=== PATIENT | male | born 1965 | race Caucasian/White ===

== ENCOUNTER → 2023-12-06 18:00 | Outpatient (REF) | payer OTHER, SELFPAY ==
--- NOTE | 2023-11-30 14:47 | PN.DIAED02 ---
Referral
DSME Class Series Code: [id number]
Referred For: Diabetes Self-Management Training, Medical Nutrition Therapy, Self-Blood Glucose Monitoring, Long-Term Complication Instruction, Accute Complication Instruction, Care Coordination, Disease Management
PHI Release Authorization Form Signed: Yes
Patient Problems:
Current Active Problems
Problem Status Onset
Type 2 diabetes mellitus without complications ~03/12/23
Demographic
(1) Type 2 diabetes mellitus without complications
Status: Acute Onset Date: ~03/12/23
Qualifiers:
Diabetes mellitus senior care insulin use: without long distance operator use Qualified Code(s): E11.9 - Type 2 diabetes mellitus without complications
Code(s): E11.9 - Type 2 diabetes mellitus without complications
Patient's primary language-: Peruvian
Education: High school/GED
Occupation: Manual labor
Hours Worked/Week: 20-40
Shift: Day
- Social
Primary Support Person: Self
Primary Care Takers: Self
Living Arrangements: Self & spouse
- Learning Methods
Preferred Method: Hands-on demonstration, Group discussion
Barriers to Learning: None
Glycemic Control
- Blood Glucose Monitoring Assessment
Blood glucose monitoring at home: Yes
Monitor Brands: [employer]
Frequency: rarely
Time: fasting
- Hemoglobin A1c
Date: 06/22/23
A1C Percentage (%): 12.5
Medical History of Diabetes
Family Diabetes History: Father
Previous Diabetes Education: No
Previous visit with Dietitian: No
Complications/Comorbidity/Specialist: Diabetic Neuropathy, Hypertension, Hyperlipidemia
Measures
- Anthropometrics
Height: 5 ft 11 in
Actual Weight: 107.955 kg
- Blood Pressure / Pulse
Blood pressure: 117/70
Pulse: 67
- Diabetes Management
Medical Management for Diabetes: Complete physical exam (06/22/2023), Dental exam (04/23/2023), Dilated eye exam (05/24/2023), Foot exam (04/23/2023)
Self-Care
- Tobacco Usage
Do you now, or have you ever smoked?: Quit more than 1 year ago
Smoking Cessation Referral and/or Information provided: No
- Alcohol & Drugs Usage
Drinks Alcohol: Yes
Amount/day: Rarely
Uses Recreational Drugs: Yes
- Meals & Dining
Meals & Dining: Patient skips meals: Yes, Food Intolerance / Allergy: No, Cultural / Catholic Dietary Needs: No
Primary Food Bead Filler: Spouse
Primary Tank Storage Supervisor: Spouse
Dining Out Frequency: 1-3x per week
- Physical Activity
Physical Limitation: No
Patient participates in physical Activity: No
- Self Foot-Care
Foot Problems: None
Performs Self Foot-Exam: No
Frequency: Rarely
- Patient-Self Assessment
Diabetes Knowledge: Poor
Feelings About Diabetes: Sadness / Depression
General Health: Fair
Importance of Health: Extremely
Stress Level: Medium
Diabetes Interferes With:: Nothing
Barriers to Diabetes Management: Nothing
Depression Survey Score: 0
Care Plan
- Education Needs
Patient Education Needs: Diabetes disease process, Chronic complications, Acute complications, Monitoring, Physical activity, Psychosocial Adjustment, Nutritional management, Goal setting & problem solving
Recommended Diabetes Training Program based on assessment: Outpatient Diabetes Education Program
- Plan of Care
Plan of Care:
Met with Deangelo today for registration and initiation of Diabetes Self-management. Pt was recommended by his PCP due to uncontrolled Diabetes, A1C of 12.5%. Patient reports that he was started on Metformin 1000mg BID. He was given a script for Wegovy
but it was cost prohibitive. Discussed adding Farxiga for optimal glucose control and pt was agreeable of the co-pay is <150. Will send script to his [facility] pharmacy.
He has a working meter at home but states he is very lazy and has not been monitoring his sugars.
Pt states that he does not exercise, he was counseled with emphasis on need to adhere to an intensive lifestyle modification that includes healthy eating, exercising and monitoring blood glucose twice a day. We spent a good amount of time discussing
importance of Physical activity. Goals for physical activity were established; Pt will start walking for 30 mins 3times/week in the evening after dinner.
--- NOTE | 2023-11-30 15:48 | PN.DIAED04 ---
Education Record
- Education Record
Class Attended: Other (Pre-Registration for DSME Classes)
DSME Class Series Code: [id number]
Instructor: Nurse Practitioner (SHERWIN Aleman)
Class Length (mins): 30
Pre-Program Knowledge: No knowledge
Pre-Test Score (%): 34
Goals
- Goal 1
Being Active: Exercise 30 minutes-5 times per week
Goals To Be Evaluated: Exercise 30 mins-5x/week
- Goal 2
Healthy Eating: Follow meal plan
Goals To Be Evaluated: Follow meal plan
- Goal 3
Monitoring: Follow monitoring schedule
Goals To Be Evaluated: Follow monitoring times
--- NOTE | 2023-12-13 14:30 | PN.DIAED06 ---
Meal Plans - Regular
- Meal Plan
Diabetic Meal Plan Name: 2000 calories
Breakfast - Total Carbohydrate (grams): 45
Breakfast - Starch Carbohydrate: 0
Breakfast - Fruit Carbohydrate: 0
Breakfast - Milk Carbohydrate: 0
Breakfast - Nonstarchy Vegetables: Yes
Breakfast - Meat/Protein: 1
Breakfast - Fat: 2
Morning Snack - Total Carbohydrate (grams): 30
Morning Snack - Starch Carbohydrate: 0
Morning Snack - Fruit Carbohydrate: 0
Morning Snack - Milk Carbohydrate: 0
Morning Snack - Nonstarchy Vegetables: Yes
Morning Snack - Meat/Protein: 0.5
Morning Snack - Fat: 0
Lunch - Total Carbohydrate (grams): 45
Lunch - Starch Carbohydrate: 0
Lunch - Fruit Carbohydrate: 0
Lunch - Milk Carbohydrate: 0
Lunch - Nonstarchy Vegetables: Yes
Lunch - Meat/Protein: 3
Lunch - Fat: 1
Afternoon Snack - Total Carbohydrate (grams): 30
Afternoon Snack - Starch Carbohydrate: 0
Afternoon Snack - Fruit Carbohydrate: 0
Afternoon Snack - Milk Carbohydrate: 0
Afternoon Snack - Nonstarchy Vegetables: Yes
Afternoon Snack - Meat/Protein: 0.5
Afternoon Snack - Fat: 0
Dinner - Total Carbohydrate (grams): 45
Dinner - Starch Carbohydrate: 0
Dinner - Fruit Carbohydrate: 0
Dinner - Milk Carbohydrate: 0
Dinner - Nonstarchy Vegetables: Yes
Dinner - Meat/Protein: 4
Dinner - Fat: 2
Evening Snack - Total Carbohydrate (grams): 15
Evening Snack - Starch Carbohydrate: 0
Evening Snack - Fruit Carbohydrate: 0
Evening Snack - Milk Carbohydrate: 0
Evening Snack - Nonstarchy Vegetables: Yes
Evening Snack - Meat/Protein: 0
Evening Snack - Fat: 0
--- NOTE | 2023-12-20 11:42 | PN.DIAED04 ---
Education Record
- Education Record
Class Attended: Class 1
DSME Class Series Code: [id number]
Instructor: Nurse Practitioner (SHERWIN Aleman)
Class Curriculum:
Outpatient Diabetes Education Program:
Class 1 (120 minutes)
Describe the diabetes disease process and treatment options
Diabetes management
Develop personal strategies to promote health and behavior change
Integrate psychosocial adjustment for daily living
Monitor blood glucose and other parameters. Interpret and use the results for self-management decision making
Prevent, detect, and treat acute complications
Class Length (mins): 120
Post-Class 1 Test Score (%): 88
== END ==
LOC: DES 18:00
PROVIDERS: ATTENDING PHYSICIAN Physician Assistant; FAMILY PHYSICIAN Family Medicine
DX: E11.65 Type 2 diabetes mellitus with hyperglycemia (principal)
CPT/HCPCS: 99078

== ENCOUNTER → 2023-12-13 18:00 | Outpatient (REF) | payer OTHER, SELFPAY | LOC: DES 18:00 | PROVIDERS: ATTENDING PHYSICIAN Physician Assistant | DX: E11.65 Type 2 diabetes mellitus with hyperglycemia (principal) | CPT/HCPCS: 99078 ==

== ENCOUNTER → 2023-12-20 18:00 | Outpatient (REF) | payer OTHER, SELFPAY | LOC: DES 18:00 | PROVIDERS: ATTENDING PHYSICIAN Physician Assistant | DX: E11.65 Type 2 diabetes mellitus with hyperglycemia (principal) | CPT/HCPCS: 99078 ==

== ENCOUNTER → 2023-12-27 08:08 | Outpatient (REF) | payer OTHER, SELFPAY ==
--- NOTE | 2023-12-31 08:34 | PN.DIAED04 ---
Education Record
- Education Record
Class Attended: Class 4
DSME Class Series Code: [id number]
Instructor: Nurse Practitioner (SHERWIN Aleman)
Class Length (mins): 120
Post-Class 4 Test Score (%): 93
== END ==
LOC: DES 08:08
PROVIDERS: ATTENDING PHYSICIAN Physician Assistant
DX: E11.65 Type 2 diabetes mellitus with hyperglycemia (principal)
CPT/HCPCS: 99078

== ENCOUNTER → 2024-01-03 12:41 | Outpatient (REF) | payer OTHER, SELFPAY | LOC: DES 12:41 | PROVIDERS: ATTENDING PHYSICIAN Physician Assistant | DX: E11.65 Type 2 diabetes mellitus with hyperglycemia (principal) | CPT/HCPCS: 99078 ==